=== PATIENT | male | born 1965 | race Caucasian/White ===

== ENCOUNTER → 2017-08-28 | Outpatient (CLI) | payer BC ==
[2017-08-28 13:14] LABS: IMMUNOGLOBULIN A 89.4 MG/DL (70-400)
[2017-08-28 13:14] LABS: COMPLEMENT C3 115 MG/DL (90-180); COMPLEMENT C4 21.4 MG/DL (10-40); IMMUNOGLOBULIN G 1080 MG/DL (681-1648); IMMUNOGLOBULIN M 38.1 MG/DL (40-230)
[2017-08-28 14:25] LABS: IMMUNOGLOBULIN E 6.9 IU/ML (<100)
== END ==
LOC: M WUC 10:13
DX: J30.1 Allergic rhinitis due to pollen (principal); J30.89 Other allergic rhinitis

== ENCOUNTER → 2021-02-05 | Outpatient (CLI) | payer OTHER ==
--- NOTE | 2021-02-05 13:43 | REP ---
INDICATION: DYSPHAGIA. COMPARISON: None. TECHNIQUE: The procedure was performed by Minoo Mo [facility], under the direct supervision of Dr. Oseguera. The procedure was performed with Briana Rothman from speech pathology present. 5 ml aliquots of thin, pudding, mixed fruit, soft food, hard food and pill consistency barium was administered. FINDINGS: Flash penetration was visualized with thin consistency barium. The detailed report of this examination will be provided by speech pathology. IMPRESSION: Flash penetration was visualized, a detailed report will be provided by speech pathology. 2.5 minutes of fluoroscopy time was utilized for this procedure. Some fluoroscopic images are performed with last image hold technology. These images require no additional radiation <Electronically signed by Minoo Mo > 02/05/21 [id number] <Electronically signed by Xavier Oseguera > 02/05/21 [id number]
== END ==
LOC: M ST 11:46
PROVIDERS: ATTEND Otolaryngology
DX: R47.02 Dysphasia (principal); S10.15XA Superficial foreign body of throat, initial encounter; Y92.9 Unspecified place or not applicable; Y99.9 Unspecified external cause status

== ENCOUNTER → 2021-02-05 | Outpatient (CLI) | payer BC, OTHER ==
[~2021-02-05] MED LIST: BARIUM SULFATE 700 MG TABLET (E-Z-DISK) As Ordered ONE; E-Z-PAQUE 96% w/w SUSP 176GM BTL As Ordered ONE; VARIBAR NECTAR 40% w/v 240ML SUSP BTL As Ordered ONE; VARIBAR PUDDING 40% w/v 230ML TUBE As Ordered ONE
--- NOTE | 2021-02-05 11:45 | REPVR ---
PROCEDURE INFORMATION: Exam: CT Maxillofacial Without Contrast, Sinus Exam date and time: 02/05/2021 11:36 AM Age: 55 years old Clinical indication: Face pain; Additional info: Facial pain TECHNIQUE: Imaging protocol: CT Maxillofacial without contrast. Focus on the sinuses. Radiation optimization: All CT scans at this facility use at least one of these dose optimization techniques: automated exposure control; mA and/or kV adjustment per patient size (includes targeted exams where dose is matched to clinical indication); or iterative reconstruction. COMPARISON: No relevant prior studies available. FINDINGS: Frontal sinuses: Mild inferior right frontal sinus mucosal thickening, partially opacifying the superior frontal recess. Normal left frontal sinus and frontal recess. Ethmoid air cells: Normal. No air-fluid levels. Sphenoid sinuses: Normal. No air-fluid levels. Normal bilateral sphenoid sinus ostia. Maxillary sinuses: Normal. No air-fluid levels. Normal bilateral ostiomeatal complexes. Nasal cavity/Septum: Unremarkable. Orbital cavity: Orbits are normal. Globes are unremarkable. Bones/joints: Unremarkable. Soft tissues: Unremarkable. IMPRESSION: Mild right frontal sinusitis. Electronically signed by: Amanuel Crowe On 02/05/2021 11:45:24 AM
== END ==
LOC: M RAD 11:17
PROVIDERS: ATTEND Otolaryngology
DX: G50.1 Atypical facial pain (principal); J01.90 Acute sinusitis, unspecified

== ENCOUNTER → 2021-07-03 | Outpatient (CLI) | payer OTHER ==
[~2021-07-03] MED LIST changes: +ALLO10TA PO; +AMOX500C PO; -BARIUM SULFATE 700 MG TABLET (E-Z-DISK) As Ordered ONE; -E-Z-PAQUE 96% w/w SUSP 176GM BTL As Ordered ONE; +LISI10TA22 PO; +SM M250T2 PO; -VARIBAR NECTAR 40% w/v 240ML SUSP BTL As Ordered ONE; -VARIBAR PUDDING 40% w/v 230ML TUBE As Ordered ONE; +VITA-243 PO; +ZINC1TAB2 PO
== END ==
LOC: M EKG 12:07
PROVIDERS: ATTEND Anesthesiology
DX: Z01.810 Encounter for preprocedural cardiovascular examination (principal)

== ENCOUNTER → 2021-07-07 | Outpatient (CLI) | payer OTHER | LOC: M LABSMTC 10:23 | PROVIDERS: ATTEND Anesthesiology | DX: Z01.812 Encounter for preprocedural laboratory examination (principal); Z11.52 Encounter for screening for COVID-19 ==

== ENCOUNTER 2021-07-12 11:47 | Day surgery (SDC) | payer OTHER ==
[~2021-07-12] VITALS: Ht 180.3 cm; Wt 91.4 kg
[~2021-07-12 11:47] MED LIST changes: +LR 1,000 ML IV ONE
[2021-07-12] MEDS ORDERED: METHYLENE BLUE 0.5% (5MG/ML) 10 ML AMP (PROVAYBLUE) As Ordered ONE (13:33)
[2021-07-12] MEDS ORDERED: LIDOCAINE W/EPINEPHRINE 1% 20ML VIAL As Ordered ONE (13:33)
[2021-07-12] MEDS ORDERED: OXYMETAZOLINE 0.05% NASAL SPRAY (AFRIN) As Ordered ONE (13:33)
[2021-07-12] MEDS ORDERED: COCAINE 4% 4ML NASAL SOLUTION BTL As Ordered ONE (13:34)
[2021-07-12] MEDS ORDERED: dexameTHASONE 4 MG/ML 1ML VIAL (J1100 PER 1MG) As Ordered ONE (14:08)
[2021-07-12] MEDS ORDERED: fentaNYL 100 MCG/2 ML INJECTION (J3010) As Ordered ONE (14:08)
[2021-07-12] MEDS ORDERED: LIDOCAINE 2% 100MG/5ML SDV (FOR ANES.) As Ordered ONE (14:08)
[2021-07-12] MEDS ORDERED: propofoL 200 MG/20 ML VIAL As Ordered ONE (14:08)
[2021-07-12] MEDS ORDERED: ROCURONIUM BROMIDE 50 MG/5 ML VIAL As Ordered ONE (14:08)
[2021-07-12] MEDS ORDERED: MIDAZOLAM INJ 2MG/2ML VIAL (J2250 PER 1MG) As Ordered ONE (14:08)
[2021-07-12] MEDS ORDERED: ONDANSETRON 4MG/2ML VIAL As Ordered ONE (14:08)
[2021-07-12] MEDS ORDERED: SUGAMMADEX SODIUM 500 MG/5 ML VIAL (BRIDION) As Ordered ONE (14:10)
[2021-07-12] MEDS ORDERED: PHENYLephrine 500MCG 5ML (100MCG/ML) SYRINGE As Ordered ONE (14:23)
[2021-07-12] MEDS ORDERED: ANEXSIA, NORCO 7.5MG/325MG TABLET(HYDROCODONE/APAP) PO PRN (15:20)
[2021-07-12] MEDS ORDERED: oxyCODONE 5MG TAB PO PRN (15:20)
[2021-07-12] MEDS ORDERED: fentaNYL 100 MCG/2 ML INJECTION (J3010) IV PRN (15:20)
[2021-07-12] MEDS ORDERED: ONDANSETRON 4MG/2ML VIAL IV PRN ×2 (15:20)
[2021-07-12] MEDS ORDERED: LR 1,000 ML IV SCH ×2 (15:20)
[2021-07-12] MEDS ORDERED: MORPHINE 2 MG/ML 1ML VIAL (J2270) IV PRN (15:20)
--- NOTE | 2021-07-12 15:34 | ROOPDOC ---
[facility] Report Of Operation Report of Operation DATE OF PROCEDURE: 07/12/21 PREPROCEDURE DIAGNOSES: #1 septal deviation #2 hypertrophic inferior turbinates. POSTPROCEDURE DIAGNOSES: Same PROCEDURE PERFORMED: Septoplasty, bilateral submucous resection inferior turbinates. SURGEON: MD Josh SHIPPING AND RECEIVING OPERATOR: MD Kaushal ANESTHESIA: . ESTIMATED BLOOD LOSS: Approximately 20 mL. COMPLICATIONS: None. REMARKS: . FINDINGS: SPECIMENS REMOVED: None PROCEDURE NOTE: Patient was seen in the office and was diagnosed with the above condition. A decision was made in consultation with the patient after explanation of risks and benefits to undergo the above-named procedure. The patient was admitted through the same-day surgery program, taken to the operating room where general anesthetic was administered via intravenous injection. Patient was then in tubated endotracheally. The nose was decongested with 4 mL of 4% cocaine solution and nasal pledgets. Patient was draped in the usual sterile fashion. The pledgets were removed. The right speculum was injected with 1% lidocaine and epinephrine. Using a Panola blade to have left hemitransfixion incision was created. Using the [place] elevator. The mucosa was elevated and the subperich ondrial plane. This was extended posteriorly over the perpendicular plate of the ethmoid and inferiorly over the vomer. We the bony and cartilaginous septums with the [place] elevator and elevated on the opposite side. The deviated portion of the bone and cartilage posteriorly was removed. A strip of cartilage was removed inferiorly, taking care to leave more than a centimeter of tip support. There was a deviated portion of cartilage superiorly and caudally. We made several vertical incisions in this cartilage. We elevated on either side of the maxillary crest and the deviated portion was removed with a 4 mm osteotome. A portion of cartilage was then placed back into the flap. We approximated the anterior hemotransfixion incision with interrupted 4-0 chromic suture. The septum was quilted with interrupted 4-0 plain gut suture. The left inferior turbinate was injected with 1% lidocaine with epinephrine. A vertical incision was made with a Panola blade. We elevated the mucosa off the submucosal plane. W e then lateralized this with the [place] elevator. The right inferior turbinate was injected with 1% lidocaine with epinephrine. We elevated the mucosa off the turbinate with the [place] elevator. The 2.9 mm microdebrider blade was used to reduce this along its length. This was then lateralized with a Davis elevator. Magnetic splints were placed on either side of the septum and secured anteriorly with a 3-0 nylon suture. Slim lines were placed against the inferior turbinates and removed in recovery. A mustache dressing was placed under the nose. The patient was then allowed to recover from anesthesia and was taken to the post anesthesia care area in stable condition. There were no complications during this procedure.. DESCRIPTION OF PROCEDURE: . Jarod Moreno MD Jul 12, 2021 15:34
[2021-07-12] MEDS ORDERED: KETOROLAC 30 MG/ML 1ML VIAL As Ordered ONE (15:44)
[2021-07-12] MEDS ORDERED: KETOROLAC 30 MG/ML 1ML VIAL IV ONE (15:50)
[2021-07-12 17:05] VITALS: BP 156/87
== END 2021-07-12 17:05 | disposition home or self-care (01) ==
LOC: M SDC 11:47
PROVIDERS: ATTEND Otolaryngology
DX: J34.2 Deviated nasal septum (principal); J34.3 Hypertrophy of nasal turbinates; I10 Essential (primary) hypertension; M10.9 Gout, unspecified; K21.9 Gastro-esophageal reflux disease without esophagitis; M19.90 Unspecified osteoarthritis, unspecified site; G47.30 Sleep apnea, unspecified; R06.83 Snoring; Z79.899 Other long term (current) drug therapy; Z79.2 Long term (current) use of antibiotics; J30.1 Allergic rhinitis due to pollen
CPT/HCPCS: 30140; 30520; C9046; J1100; J1885; J2250; J2270; J2370; J2405; J3010; Q9968